=== PATIENT | female | born 1965 | race Caucasian/White ===

== ENCOUNTER 2017-08-02 13:27 | Outpatient (CLI) | payer BC, OTHER ==
--- NOTE | 2017-08-02 15:42 | RAD ---
LEFT CALCANEAL RADIOGRAPHS 2 VIEWS: DATE: 08/02/17. PROVIDED CLINICAL HISTORY: Heel pain. FINDINGS: There is no evidence for a fracture or other acute osseous abnormality. Small plantar and posterior calcaneal enthesophytes are noted. Alignment appears anatomic. Joint spaces appear preserved. IMPRESSION: Small plantar and posterior calcaneal enthesophytes. POS: OFF
== END 2017-08-02 13:28 | disposition home or self-care (01) ==
LOC: RAD-FRANK 13:27
PROVIDERS: ATTEND Nurse Practitioner Family
DX: M79.672 Pain in left foot (principal); M77.32 Calcaneal spur, left foot

== ENCOUNTER 2020-05-24 14:27 | Outpatient (CLI) | payer OTHER | END 2020-05-24 14:28 | disposition home or self-care (01) | LOC: CTENTCT 14:27 | PROVIDERS: ATTEND Otolaryngology Plastic Surgery within the Head & Neck | DX: J32.9 Chronic sinusitis, unspecified (principal) | CPT/HCPCS: 70486 ==

== ENCOUNTER 2020-12-31 08:13 | Outpatient (CLI) | payer OTHER | END 2020-12-31 08:14 | disposition home or self-care (01) | LOC: RAD-FRANK 08:13 | PROVIDERS: ATTEND Nurse Practitioner Family | DX: R07.81 Pleurodynia (principal) | CPT/HCPCS: 71046 ==

== ENCOUNTER 2021-02-23 10:23 | Outpatient (CLI) | payer OTHER | END 2021-02-23 10:24 | disposition home or self-care (01) | LOC: BICMAMMO 10:23 | PROVIDERS: ATTEND Nurse Practitioner Family | DX: N64.53 Retraction of nipple (principal) | CPT/HCPCS: 77066; G0279 ==

== ENCOUNTER 2024-10-26 12:23 | Emergency (ER) | payer SELFPAY ==
[2024-10-26 12:53] LABS: #Basophils Less than 0.03 10x3/uL (0.0-0.2); %Basophils 0.3 % (0.0-1.0); %Eosinophils 0.9 % (0.0-10.0); %Lymphocytes 26.6 % (21.0-51.0); %Monocytes 5.9 % (0.0-10.0); Hematocrit 46.1 % (36.0-47.0); Hemoglobin 15.8 g/dL (12.0-16.0); Mean Corpuscular HGB CONC 34.3 g/dL (32.0-36.0); Mean Corpuscular Hemoglobin 30.6 pg (27.0-31.0); Mean Corpuscular Volume 89.3 fL (78.0-98.0); Mean Platelet Volume 10.4 fL (7.4-10.4); Platelet Count 273 10x3/uL (130-400); RBC Distribution Width 12.4 % (11.5-14.5); Red Blood Cell (RBC) Count 5.16 mill/uL (4.20-5.40)
[2024-10-26 13:13] LABS: ALT (SGPT) 30 U/L (8-55); AST (SGOT) 36 U/L (5-34); Albumin 3.6 g/dL (3.5-5.0); Alkaline Phosphatase 71 U/L (40-110); Anion Gap 15 mmol/L (10-20); BUN (Urea Nitrogen) 9 mg/dL (9.8-20.1); Bilirubin, Total 0.5 mg/dL (0.2-1.2); Calc. Creatinine Clearance 0 mL/min (70-130); Calcium 8.5 mg/dL (7.8-10.44); Carbon Dioxide 23 mmol/L (22-29); Chloride 104 mmol/L (98-107); Estimated GFR 94; Globulin 4.3 g/dL (2.4-3.5); Glucose 99 mg/dL (70-105); Potassium 3.5 mmol/L (3.5-5.1); Protein, Total 7.9 g/dL (6.0-8.3); Sodium 138 mmol/L (136-145)
[2024-10-26 13:18] LABS: Troponin I Less than 0.010 ng/mL (< 0.028)
[2024-10-26] MEDS ORDERED: Ketorolac Tromethamine 30 MG (1 mL) VIAL ONE (13:26)
[2024-10-26] MEDS ORDERED: Ipratropium/Albuterol 3 ML NEB ONE (13:27)
== END 2024-10-26 15:31 | disposition home or self-care (01) ==
LOC: ERS 12:23
DX: J06.9 Acute upper respiratory infection, unspecified (principal)
CPT/HCPCS: 36415; 71046; 80053; 84484; 85025; 87428; 93005; 94640; 96374; J1885; J7620